=== PATIENT | male | born 1950 | race Caucasian/White ===

== ENCOUNTER 2017-04-28 17:13 | Observation (INO) | payer BC, OTHER ==
[~2017-04-28] VITALS: Ht 177.8 cm; Wt 70.3 kg
[2017-04-28 17:13] VITALS: BP_SYST 132
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
--- NOTE | 2017-04-28 17:26 | NUR ---
[facility] Report filed and faxed to [phone]. WITH CONFIRMATION RECEIVED.
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
--- NOTE | 2017-04-28 17:44 | NUR ---
ER at bedside examining patient.
--- NOTE | 2017-04-28 18:10 | NUR ---
Pt is resting comfortably in bed after medication was given.
[2017-04-28] MEDS ORDERED: LORazepam 2 MG/ML VIAL (FOR ER USE) IVP ONE (18:15)
[2017-04-28] MEDS ORDERED: ONDANSETRON HCL 4 MG/2 ML VIAL IVP ONE (18:15)
[2017-04-28 18:20] LABS: BASOPHILS % (AUTO) 0.6 % (0.0-2.0); EOSINOPHILS % (AUTO) 0.4 % (0.0-4.0); HEMATOCRIT 41.7 % (36-54); LYMPHOCYTES # (AUTO) 1.9 K/uL (1.0-5.5); LYMPHOCYTES % (AUTO) 24.1 % (20.5-51.5); MEAN CORPUSCULAR HEMOGLOBIN 29 pg (27-31); MEAN CORPUSCULAR HGB CONC 34 % (32-36); MEAN CORPUSCULAR VOLUME 87 fL (79.0-98.0); MONOCYTES # (AUTO) 0.5 K/uL (0.0-1.0); MONOCYTES % (AUTO) 6.2 % (1.7-9.3); NEUTROPHILS # (AUTO) 5.7 K/uL (1.8-7.7); NEUTROPHILS % (AUTO) 68.7 % (40.0-70.0); PLATELET COUNT (AUTO) 229 K/uL (130-430); RED BLOOD CELL COUNT(AUTO) 4.82 MIL/uL (4.2-6.2); RED CELL DISTRIBUTION WIDTH 12.5 % (9.0-15.0); WHITE BLOOD COUNT (AUTO) 8.1 K/uL (4.8-10.8)
[2017-04-28] MEDS ORDERED: ONDANSETRON HCL 4 MG/2 ML VIAL ONE (18:24)
[2017-04-28] MEDS ORDERED: LORazepam 2 MG/ML VIAL (FOR ER USE) ONE (18:24)
[2017-04-28 18:42] LABS: ANION GAP 18 (5-15); CALCIUM 9.3 mg/dL (8.4-11.0); CHLORIDE 105 mmol/L (98-107); CREATININE 1.26 mg/dL (0.55-1.30); GLUCOSE 158 mg/dL (70-99); INR 0.9 (0.80-1.20); POTASSIUM 3.4 mmol/L (3.5-5.1); PROTHROMBIN TIME 10.3 SECS (9.5-12.5); SODIUM SERUM 141 mmol/L (136-145); UREA NITROGEN, BLOOD 22 mg/dL (8-21)
[2017-04-28 18:43] LABS: GFR AFRICAN AMERICAN 74 mL/min (>90)
[2017-04-28 18:58] LABS: ALANINE AMINOTRANSFERASE 18 U/L (12-78); ALBUMIN 4.2 g/dL (3.4-4.8); ASPARTATE AMINOTRANSFERASE 22 U/L (10-37); FREE T4 (FREE THYROXINE) 1.1 ng/dL (0.6-1.6); TOTAL BILIRUBIN 0.5 mg/dL (0.0-1.0); TOTAL PROTEIN, SERUM 7.7 g/dL (6.4-8.3)
[2017-04-28 18:59] LABS: ALCOHOL, BLOOD < 3 mg/dL (<10)
[2017-04-28] MEDS ORDERED: NACL 0.9% 1,000 ML IV ONE ×3 (19:00→21:15)
[2017-04-28] MEDS ORDERED: POTASSIUM CHLORIDE 20 MEQ TAB.PRT.SR PO ONE (19:00)
--- NOTE | 2017-04-28 19:40 | NUR ---
14 Fr. In/Out Straight Catheter. 125cc of yellow clear urine. Urine specimen sent to lab.
[2017-04-28 20:03] LABS: BILIRUBIN,URINE NEGATIVE (NEGATIVE); BLOOD, URINE 1+ (NEGATIVE); CLARITY/URINE SL HAZY (CLEAR); COLOR,URINE YELLOW (YELLOW); GLUCOSE,URINE NEGATIVE (NEGATIVE); KETONES,URINE 3+ (NEGATIVE); LEUKOCYTE ESTERASE ,URINE NEGATIVE (NEGATIVE); NITRITE, URINE NEGATIVE (NEGATIVE); PH,URINE 5.5 (5.0-8.0); PROTEIN URINE NEGATIVE (NEGATIVE); UROBILINOGEN,URINE 0.2 (0.2-1.0)
[2017-04-28 20:24] LABS: BARBITURATE, URINE NEGATIVE (NEG <=200); BENZODIAZEPINE, URINE NEGATIVE (NEG <=150); CANNABINOID, URINE NEGATIVE (NEG <=50); COCAINE, URINE NEGATIVE (NEG <=150); METHAMPHETAMINES SCREEN,URINE NEGATIVE (NEG <=500); OPIATE, URINE NEGATIVE (NEG <=100); PHENCYCLIDINE SCREEN,URINE NEGATIVE (NEG <=25); UR TRICYCLIC ANTIDEPRESSANTS NEGATIVE (NEG <=300); URINE AMPHETAMINE NEGATIVE (NEG <=500); URINE METHADONE NEGATIVE (NEG <=200); URINE OXYCODONE SCREEN NEGATIVE (NEG <=100); URINE PROPOXYPHENE SCREEN NEGATIVE (NEG <=300)
[2017-04-28 20:34] LABS: BACTERIA,URINE FEW /HPF (None Seen); RBC,URINE 0-3 /HPF (0-3); WBC,URINE 0-3 /HPF (0-3)
[2017-04-28 20:35] LABS: FINE GRANULAR CASTS,URINE 0-10 /LPF (None Seen); MUCUS,URINE 1+ /LPF (None Seen); URINE AMORPHOUS URATE 2+ /HPF (None Seen)
[2017-04-28] MEDS ORDERED: PANTOPRAZOLE SODIUM 40 MG/VIAL (PROTONIX) IVP ONE (21:00)
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
--- NOTE | 2017-04-28 21:19 | NUR ---
Patient will be admitted to care of Dr. Pimentel. Ad[facility] to [facility]. Will go to room 116 B. Belongings list completed. Summary report printed. Report will be given at bedside.
[2017-04-28 21:22] VITALS: BP_SYST 108
--- NOTE | 2017-04-28 23:30 | NUR ---
Rounds Pt is awake watching tv at this time. No s/s of pain or any distress noted. Call light within reach, will cont to monitor.
[2017-04-29 00:22] VITALS: BP_SYST 94
--- NOTE | 2017-04-29 01:30 | NUR ---
Rounds Pt is resting comfortably at this time. No s/s of any distress noted. Bed in low position with side rails up. Call light within reach, will cont to monitor.
[2017-04-29 04:42] VITALS: BP_SYST 126
[2017-04-29 08:00] VITALS: BP_SYST 128
[2017-04-29 12:38] VITALS: BP_SYST 115
[2017-04-29 15:22] VITALS: BP_SYST 115
[2017-04-29 16:18] VITALS: BP_SYST 107
--- NOTE | 2017-04-30 15:08 | NUR ---
Discharge Follow Up Phone Call: DIAPER FOLDER called pt ([phone]) and the phone message states that the number is no longer in service. DIAPER FOLDER called and spoke with pt's , Trista ([phone]). Pt's states that pt is doing well; there are no questions regarding discharge or medication instructions; pt attended PCP follow up appointment today and the appointment went well. Pt's did not express any other needs or concerns and denied the need for additional follow up at this time. No further follow up phone calls required at this time.
== END 2017-04-29 17:08 | disposition home or self-care (01) ==
LOC: SED 17:13 → SMU 21:14
PROVIDERS: ADMIT General Practice; ATTEND General Practice
DX: R55 Syncope and collapse (principal); E87.6 Hypokalemia; E87.2 Acidosis; R42 Dizziness and giddiness
CPT/HCPCS: 36415; 70450; 71010; 74000; 80053; 80307; 81000; 82140; 83605; 83880; 84439; 84484; 85025; 85610; 87040; 93005; 93880; 96361 ×3; 96374; 96375; 99285; G0378 ×2; G0482; J2060; J2405; J7030